=== PATIENT | female | born 1980 | race American Indian/Alaskan Native ===

== ENCOUNTER 2021-04-24 12:28 | Emergency (ER) | payer OTHER ==
[2021-04-24 12:46] VITALS: BP 105/70; PULSE 87; TEMP 98.5; BMI 25.6
[2021-04-24] MEDS ORDERED: KETOROLAC TROMETHAMINE 60 MG/2 ML VIAL IM ONE (13:17)
[2021-04-24] MEDS ORDERED: KETOROLAC TROMETHAMINE 30 MG/1 ML VIAL ONE (13:26)
== END 2021-04-24 13:58 | disposition home or self-care (01) ==
LOC: JERFT 12:28
PROC: 3E023GC Introduction of Other Therapeutic Substance into Muscle, Percutaneous Approach (ICD-10-PCS; principal; 2021-04-24)
DX: M72.2 Plantar fascial fibromatosis (principal)
CPT/HCPCS: 99284-25

== ENCOUNTER 2022-10-02 21:30 | Emergency (ER) | payer OTHER ==
[2022-10-02 21:47] VITALS: RESP 18; BMI 32.0
[2022-10-02] MEDS ORDERED: DALBAVANCIN HCL 1,500 MG in DEXTROSE 5%-WATER - 500 ML IVPB ONE ×2 (22:23→23:42)
[2022-10-02] MEDS ORDERED: ACETAMINOPHEN 1000 MG/100 ML BAG IVPB ONE (22:25)
[2022-10-02] MEDS ORDERED: ACETAMINOPHEN INJECTION 100 ML IVPB ONE (22:43)
[2022-10-02 23:27] LABS: BASO % 0.9 % (0-2.0); EOS % 2.2 % (0-4.5); HEMATOCRIT 35.3 % (32.4-45.2); HEMOGLOBIN 11.7 GM/dL (10.7-15.3); LYMPH % 19.2 % (8-40); MCH 26.8 pg (25.7-33.7); MCHC 33.1 g/dl (32.0-36.0); MEAN CELL VOLUME 80.9 fl (80-96); MONO % 6.3 % (3.8-10.2); NEUT % 71.4 % (42.8-82.8); PLATELET COUNT 356 10^3/uL (134-434); RBC 4.37 M/mm3 (3.60-5.2); RDW 15.4 % (11.6-15.6); WHITE BLOOD COUNT 11.3 K/mm3 (4.0-10.0)
[2022-10-02 23:38] LABS: CHLORIDE 107 mmol/L (98-107); SODIUM 135 mmol/L (136-145)
[2022-10-02 23:40] LABS: ALBUMIN 3.9 g/dl (3.4-5.0); CALCIUM 9.1 mg/dL (8.5-10.1); CO2 26 mmol/L (21-32)
[2022-10-02 23:42] LABS: BLOOD UREA NITROGEN 13.7 mg/dL (7-18); GLUCOSE,RANDOM 88 mg/dL (74-106)
[2022-10-02 23:44] LABS: CREATININE 0.7 mg/dL (0.55-1.3); SGOT/AST 66 U/L (15-37)
[2022-10-02 23:45] LABS: BILIRUBIN,TOTAL 0.6 mg/dL (0.2-1); TOT PROT 8.6 g/dl (6.4-8.2)
[2022-10-02 23:47] LABS: ALK PHOS 103 U/L (45-117)
[2022-10-02 23:57] LABS: ANION GAP 2 MMOL/L (8-16); SGPT/ALT 14 U/L (13-61)
[2022-10-03 00:26] LABS: ERYTHROCYTE SEDIMENTATION RATE 44 mm/hr (0-20)
[2022-10-03 01:08] LABS: CALCIUM 8.8 mg/dL (8.5-10.1)
[2022-10-03 01:09] LABS: BLOOD UREA NITROGEN 12.7 mg/dL (7-18)
[2022-10-03 01:11] VITALS: BP 134/84; PULSE 75; TEMP 97.9
[2022-10-03 01:12] LABS: CREATININE 0.7 mg/dL (0.55-1.3)
== END 2022-10-03 01:55 | disposition home or self-care (01) ==
LOC: JER 21:30
PROC: 3E0333Z Introduction of Anti-inflammatory into Peripheral Vein, Percutaneous Approach (ICD-10-PCS; principal; 2022-10-02)
PROC: 3E03329 Introduction of Other Anti-infective into Peripheral Vein, Percutaneous Approach (ICD-10-PCS; 2022-10-02)
DX: L03.116 Cellulitis of left lower limb (principal); L03.115 Cellulitis of right lower limb
CPT/HCPCS: 36415; 80048; 80053; 84703; 85025; 85651; 86140; 99284-25; J0875